=== PATIENT | male | born 1955 | race Caucasian/White ===

== ENCOUNTER 2025-05-23 07:56 | Outpatient (CLI) | payer MEDICARE | END 2025-05-23 07:57 | disposition home or self-care (01) | LOC: CSHULT 07:56 | PROVIDERS: ATTEND Nurse Practitioner Family | DX: R10.9 Unspecified abdominal pain (principal); K59.00 Constipation, unspecified; K76.9 Liver disease, unspecified | CPT/HCPCS: 76700 ==